=== PATIENT | female | born 1935 | race Two or more races ===

== ENCOUNTER 2017-06-17 11:57 | Emergency (ER) | payer MEDICARE, OTHER ==
[~2017-06-17] VITALS: Ht 154.9 cm; Wt 79.4 kg
[2017-06-17 13:36] VITALS: BP 148/88
== END 2017-06-17 15:22 | disposition home or self-care (01) ==
LOC: ER 11:57
DX: J20.9 Acute bronchitis, unspecified (principal); E78.5 Hyperlipidemia, unspecified; I10 Essential (primary) hypertension; Z88.6 Allergy status to analgesic agent
CPT/HCPCS: 71020